=== PATIENT | male | born 1975 | race Caucasian/White ===

== ENCOUNTER 2024-04-24 17:19 | Emergency (ER) | payer OTHER, SELFPAY ==
[2024-04-24] VITALS (8 sets, daily range): BP systolic 114–129; BP diastolic 73–85; PULSE 81–88; RESP 12–21; TEMP 36.4–36.6; O2SAT 95–98
--- NOTE | 2024-04-24 17:29 | EKG_ITS ---
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
--- NOTE | 2024-04-24 17:31 | DI.RAD.S_ITS ---
PROCEDURE: XR CHEST 1V INDICATIONS: chest pain TECHNIQUE: One view of the chest was acquired. COMPARISON: [facility], CR, XR CHEST 2 VIEWS, 09/23/2022, 14:49. FINDINGS: Surgical changes and devices: None. Lungs and pleura: Lungs are clear. No pleural effusions or pneumothorax. Mediastinum: Mediastinal contours appear normal. Heart size is normal. Bones and chest wall: No suspicious bony lesions. Overlying soft tissues appear unremarkable. IMPRESSION: No acute pulmonary process. Dictated by: Cherelle Ford M.D. on 04/24/2024 at 18:29 Approved by: Cherelle Ford M.D. on 04/24/2024 at 18:29
[2024-04-24] MEDS: ASPIRIN 81 MG CHEW TAB 324 MG PO (17:35)
[2024-04-24 17:49] LABS: Add Manual Diff / Slide Review NO; Basophils Absolute Auto 100 /uL (0-100); Basophils Percent Auto 0.8 % (0-2); Eosinophils Absolute Auto 400 /uL (0-450); Eosinophils Percent Auto 4.5 % (2-4); Hematocrit 43.5 % (41-53); Hemoglobin 15.3 g/dL (13.5-17.5); Lymphocytes Absolute Auto 3200 /uL (1100-4500); Lymphocytes Percent Auto 35.7 % (25-40); Mean Corpuscular HGB Conc 35.1 % (30-36); Mean Corpuscular Hemoglobin 30.8 PG (26-34); Mean Corpuscular Volume 87.7 fL (80-100); Monocytes Absolute Auto 1000 /uL (0-900); Neutrophils Absolute Auto 4300 /uL (1500-7000); Platelet Count 320 X10^3/uL (150-400); Red Blood Cell Count 4.96 X10^6/uL (4.5-5.9); Red Cell Distribution Width 13.4 % (11.6-14.8); White Blood Cell Count 8.8 X10^3/uL (4.5-11.0)
[2024-04-24 17:55] LABS: Prothrombin Time 10.9 SECONDS (9.4-12.5)
[2024-04-24 17:58] LABS: PTT Partial Thromboplastin Tim 41 SECONDS (25.1-36.5)
[2024-04-24 18:10] LABS: Alanine Aminotransferase 39 IU/L (<50); Albumin 4.8 g/dL (3.5-5.0); Albumin Globulin Ratio 1.3 (1.0-2.8); Alkaline Phosphatase 81 U/L (38-126); Aspartate Aminotransferase 38 IU/L (17-59); BUN Creatinine Ratio 26.9 (6-22); Bilirubin Total 0.6 mg/dL (0.2-1.3); Blood Urea Nitrogen 32 mg/dL (9-20); Calcium 9.2 mg/dL (8.4-10.2); Carbon Dioxide 27 mmol/L (22-32); Chloride 105 mmol/L (98-107); Creatine Kinase 197 U/L (55-170); Estimated Glomerular Filt Rate > 60 mL/min (>60); Globulin 3.6 g/dL (1.7-4.1); Glucose 111 mg/dL (70-100); HEMOLYSIS 57 (0-50); Lipase 75 U/L (23-300); Magnesium 2.2 mg/dL (1.6-2.3); Potassium 4.9 mmol/L (3.4-5.1); Sodium 140 mmol/L (137-145); Total Protein 8.4 g/dL (6.3-8.2)
--- NOTE | 2024-04-24 18:15 | ED_ITS ---
HPI - Chest Pain General Chief Complaint: Chest Pain Stated Complaint: abnormal EKG/angina Time Seen by Provider: 04/24/24 17:53 Source: patient Mode of arrival: Ambulatory History of Present Illness HPI narrative: Patient 48-year-old male history of hyperlipidemia uncontrolled he has not able to take statins but is taking niacin, PTSD anxiety family history of father having multiple stents in his 70s presents today with chest heaviness while walking up a hill. He reports [facility]. He had calcium score what she says was high cholesterol is 640 he had an outpatient EKG yesterday and he was told it was abnormal. Today while walking up a hill he noticed some chest heaviness. It is nonradiating. No significant shortness of breath but he feels like pressure in the center of his chest. Started around 2:00 p.m.. Now in the ED has settled quite a bit but not completely gone. He does feel like he is quite anxious. He takes long-acting propranolol usually helps. He was already given aspirin he does not want nitroglycerin. Related Data Allergies Allergy/AdvReac Type Severity Reaction Status Date / Time bupropion [From Wellbutrin] Allergy Hypotension Verified 04/24/24 17:33 [id number]-[id number]-AwM Reductase Allergy Muscle Pain Verified 04/24/24 17:33 Inhibitor Sulfa (Sulfonamide Allergy Rash Verified 04/24/24 17:33 Antibiotics) zolpidem [From Ambien] Allergy Verified 04/24/24 17:33 Patient History Social History Smoking Status: Never smoker Smoking Status: Never smoker alcohol intake frequency: a few times a month Substance Use Type: does not use Exam Initial Vital Signs Initial Vital Signs: Vital Signs Temperature 98 F 04/24/24 17:20 Pulse Rate 85 04/24/24 17:20 Respiratory Rate 12 04/24/24 17:20 Blood Pressure 129/82 04/24/24 17:20 Pulse Oximetry 98 04/24/24 17:20 Oxygen Delivery Method Room Air 04/24/24 17:20 GENERAL: Alert 48-year-old male and in no acute distress. HEENT: Head atraumatic,EOMI, pupils reactive, face symmetric, moist mucous membranes CARDIOVASCULAR: Regular rate and rhythm without murmurs, rubs or gallops. RESPIRATORY: Breath sounds equal bilaterally, no wheezes rales or rhonchi. ABDOMEN: Soft, nontender. Normoactive bowel sounds all 4 quadrants. No guarding or rebound. EXTREMITIES: Normal range of motion, no clubbing or edema. Neurovascularly intact NEUROLOGICAL: Alert and oriented x4.Normal gait and speech. Cranial nerves II through XII grossly intact. SKIN: Warm, dry, no laceration, no petechiae, no rashes or lesions. Scores HEART Score Heart Score history: Moderately Suspicious Heart Score EKG: Normal Heart Score Age: 45-64 years old Heart Score risk factors: 1-2 risk factors Heart Score troponin: < or = to normal limit Heart Score Total: 3 Course Orders Ordered: ED Orders 04/24/24 19:29 Trop I [Troponin I] Stat 04/24/24 19:30 EKG-12 Lead Stat Discontinued Medications Aspirin (Aspirin 81 Mg Chew Tab) 324 mg PO NOW ONE Stop: 04/24/24 17:32 Last Admin: 04/24/24 17:35 Dose: 324 mg Documented By: SB Vital Signs Vital signs: Vital Signs - 8 hr 04/24/24 19:30 04/24/24 19:30 04/24/24 20:00 Temperature Pulse Rate 83 Respiratory Rate Blood Pressure 119/76 114/73 Pulse Oximetry 97 04/24/24 20:00 04/24/24 20:30 04/24/24 20:30 Temperature 97.6 F Pulse Rate 82 81 Respiratory Rate 20 Blood Pressure 118/78 Pulse Oximetry 95 97 MDM - Chest Pain Lab Data 04/24/24 17:30 04/24/24 17:30 Labs: Lab Results 04/24/24 04/24/24 Range/Units 17:30 19:29 WBC 8.8 (4.5-11.0) X10^3/uL RBC 4.96 (4.5-5.9) X10^6/uL Hgb 15.3 (13.5-17.5) g/dL Hct 43.5 (41-53) % MCV 87.7 (80-100) fL MCH 30.8 (26-34) PG MCHC 35.1 (30-36) % RDW 13.4 (11.6-14.8) % Plt Count 320 (150-400) X10^3/uL Neut % (Auto) 48.0 L (50-75) % Lymph % (Auto) 35.7 (25-40) % [place] % (Auto) 11.0 (3-14) % Eos % (Auto) 4.5 H (2-4) % Baso % (Auto) 0.8 (0-2) % Neut # (Auto) 4300 (4789-5773) /uL Lymph # (Auto) 3200 (4774-5325) /uL [place] # (Auto) 1000 H (0-900) /uL Eos # (Auto) 400 (0-450) /uL Baso # (Auto) 100 (0-100) /uL PT 10.9 (9.4-12.5) SECONDS INR 1.0 (0.9-1.3) APTT 41 H (25.1-36.5) SECONDS Sodium 140 (137-145) mmol/L Potassium 4.9 (3.4-5.1) mmol/L Chloride 105 (98-107) mmol/L Carbon Dioxide 27 (22-32) mmol/L BUN 32 H (9-20) mg/dL Creatinine 1.19 (0.66-1.25) mg/dL Estimated GFR > 60 (>60) mL/min BUN/Creatinine Ratio 26.9 H (6-22) Glucose 111 H (70-100) mg/dL Calcium 9.2 (8.4-10.2) mg/dL Magnesium 2.2 (1.6-2.3) mg/dL Total Bilirubin 0.6 (0.2-1.3) mg/dL AST 38 (17-59) IU/L ALT 39 (<50) IU/L Alkaline Phosphatase 81 (38-126) U/L Total Creatine Kinase 197 H (55-170) U/L Troponin I < 0.012 < 0.012 (0.01-0.034) ng/mL NT-Pro-B Natriuret Pep < 20 (<125) pg/mL Total Protein 8.4 H (6.3-8.2) g/dL Albumin 4.8 (3.5-5.0) g/dL Globulin 3.6 (1.7-4.1) g/dL Albumin/Globulin Ratio 1.3 (1.0-2.8) Lipase 75 (23-300) U/L Imaging Data Chest x-ray: Radiologist's Impression: PROCEDURE: XR CHEST 1V INDICATIONS: chest pain TECHNIQUE: One view of the chest was acquired. COMPARISON: [facility], CR, XR CHEST 2 VIEWS, 09/23/2022, 14:49. FINDINGS: Surgical changes and devices: None. Lungs and pleura: Lungs are clear. No pleural effusions or pneumothorax. Mediastinum: Mediastinal contours appear normal. Heart size is normal. Bones and chest wall: No suspicious bony lesions. Overlying soft tissues appear unremarkable. IMPRESSION: No acute pulmonary process. Dictated by: Cherelle Ford M.D. on 04/24/2024 at 18:29 Approved by: Cherelle Ford M.D. on 04/24/2024 at 18:29 ECG Data Attestation: I personally reviewed and interpreted this ECG as follows: Prior ECG tracings: not available for review Interpretation: Normal sinus rhythm rate 84 CA interval 172 QRS 86 QTC 425 Q-wave noted inferior leads 2 3 AVF non pathologic no acute ST elevation depression or T-wave inversions no priors to compare EKG 2. Sinus rhythm rate 83 persistent Q-waves inferiorly but remain unchanged no acute ischemic changes MDM Narrative Medical decision making narrative: Patient 48-year-old male has uncontrolled cholesterol family history presents today with chest heaviness while walking. It has not completely resolved he also has some anxiety. He has a heart score of 3 EKGs do show Q-waves and inferior leads but unlike the acute most likely chronic. Chest x-ray no acute cardio pulmonary process Blood work has been reviewed he has 2- troponins otherwise unremarkable. Long discussion with patient he has having no further symptoms in the emergency department he is given aspirin. Heart rate and blood pressure are within normal limits. He does certainly have risk factors cholesterol is out of control he has some family history. He thinks he was quite nervous about his abnormal EKG that happened yesterday though he has not sure what those changes were. Today he has Q-waves in inferior leads which remain unchanged between 2 EKGs I suspect that this is old with 2- troponins today. He understands he needs further workup trying to do so as an outpatient which I think is reasonable. He is also given strict return precautions and is encouraged to come back if you should have any new or worsening pain. He understands this. Discharge Plan Departure Patient Disposition: Home Clinical Impression: Atypical chest pain Instructions: DI for Atypical Chest Pain Activity Restrictions/Additional Instructions: *You have been diagnosed with atypical chest *What to do: At this time I do strongly recommend that you have stress test and echocardiogram. Sounds like this is being scheduled, *Continue to take medications as directed Aspirin 81 mg daily *Follow up with your primary care provider in 2-3 days or call [phone] *Return to ER if you should have increasing chest heaviness palpitations shortness of breath [or] any new, worsening or concerning symptoms Referrals: Zelda Qiu ARNP [Primary Care Provider] - Stand Alone Forms: Patient Portal/API
[2024-04-24 18:20] LABS: NT-proBNP (BNP-Adult 18+) < 20 pg/mL (<125); Troponin I < 0.012 ng/mL (0.01-0.034)
--- NOTE | 2024-04-24 19:30 | EKG_ITS ---
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
[2024-04-24 20:03] LABS: Troponin I < 0.012 ng/mL (0.01-0.034)
== END 2024-04-24 20:40 | disposition home or self-care (01) ==
PROVIDERS: Emergency Medicine; Emergency Provider Emergency Medicine; PCP Registered Nurse
DX: R07.89 Other chest pain (principal); F41.9 Anxiety disorder, unspecified; Z95.5 Presence of coronary angioplasty implant and graft
CPT/HCPCS: 36415; 71045; 80053; 82550; 83690; 83735; 83880; 84484; 85025; 85610; 85730; 93005; 99284